=== PATIENT | male | born 1960 | race Caucasian/White ===

== ENCOUNTER 2021-01-24 12:59 | Emergency (ER) | payer OTHER ==
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
--- NOTE | 2021-01-24 15:16 | CR ---
Left thumb: 4 views of the left thumb were obtained. Comparison: No prior left thumb study is available for comparison. Slightly comminuted fracture is seen within the distal phalanx of the left thumb. Alignment remains close to anatomic. Soft tissue swelling is noted. No proximal osseous abnormality is seen. Impression: 1. Slightly comminuted distal phalanx fracture within the left thumb which remains close to anatomic in alignment. 2. Diffuse soft tissue swelling is present. Diagnostic code #3
== END 2021-01-24 15:10 | disposition home or self-care (01) ==
LOC: JD.ED 12:59
DX: S62.522A Displaced fracture of distal phalanx of left thumb, initial encounter for closed fracture (principal); S50.812A Abrasion of left forearm, initial encounter; V49.40XA Driver injured in collision with unspecified motor vehicles in traffic accident, initial encounter; Y92.410 Unspecified street and highway as the place of occurrence of the external cause
CPT/HCPCS: 29130; 73140-26-FA; 73140-FA; 99284-25

== ENCOUNTER 2023-01-31 08:49 | Emergency (ER) | payer OTHER ==
[2023-01-31] MEDS ORDERED: Sodium Chloride 0.9% 10 ML Syringe FLUSH PRN (09:27)
[2023-01-31 10:05] LABS: BASOPHILS PERCENT AUTO 0.6 % (0.0-1.0); EOSINOPHILS ABSOLUTE AUTO 0.4 K/mm3 (0.0-0.4); EOSINOPHILS PERCENT AUTO 6.9 % (0.0-6.0); HEMATOCRIT 44.9 % (42.0-52.0); HEMOGLOBIN 15.9 gm/dl (14.0-18.0); IMMATURE GRAN ABSOLUTE AUTO 0.01 K/mm3 (0.00-0.05); IMMATURE GRAN PERCENT AUTO 0.2 % (0.0-0.4); LYMPHOCYTES PERCENT AUTO 38.8 % (24.0-44.0); MEAN CORPUSCULAR HEMOGLOBIN 33.3 pg (28.0-32.0); MEAN CORPUSCULAR HGB CONC 35.4 g/dl (32.0-36.0); MEAN CORPUSCULAR VOLUME 93.9 fl (83.0-99.0); MEAN PLATELET VOLUME 9.1 fl (9.4-12.4); MONOCYTES ABSOLUTE AUTO 0.5 K/mm3 (0.0-0.8); MONOCYTES PERCENT AUTO 9.6 % (0.0-8.0); NEUTROPHILS ABSOLUTE AUTO 2.2 K/mm3 (1.8-7.7); NEUTROPHILS PERCENT AUTO 43.9 % (41.0-71.0); PLATELET COUNT,PLT 218 K/mm3 (150-400); RED BLOOD CELL COUNT 4.78 M/mm3 (4.52-5.90); WHITE BLOOD CELL COUNT,WBC 5.08 K/mm3 (3.9-11.3)
[2023-01-31 10:44] LABS: A/G RATIO 1.2 (1-2); ALBUMIN 4.2 g/dl (3.4-5.0); ANION GAP 12.7 (5-15); BILIRUBIN TOTAL 0.5 mg/dL (0.2-1.0); CALCIUM 9.2 mg/dL (8.5-10.1); EST CRCL DRUG DOSING (CG) 79.08 mL/min; MAGNESIUM 2.1 mg/dL (1.8-2.4); POTASSIUM,K 3.7 mEq/L (3.5-5.1); PROTEIN TOTAL,TP 7.7 g/dl (6.4-8.2)
[2023-01-31 11:46] LABS: TSH 1.415 uIU/mL (0.358-3.74)
[2023-01-31 17:32] LABS: INR 0.96; PROTHROMBIN TIME 10.3 SECONDS (9.7-12.0)
[2023-01-31 17:33] LABS: PTT,PARTIAL THROMBOPLSTIN TIME 27.3 SECONDS (21.7-31.4)
== END 2023-01-31 12:52 | disposition home or self-care (01) ==
LOC: JD.ED 08:49
DX: R00.2 Palpitations (principal); I10 Essential (primary) hypertension
CPT/HCPCS: 36415; 80053; 83735; 83880; 84443; 84484; 85025; 85610; 85730; 93005; 93010; 93246; 99282; 99285